=== PATIENT | female | born 1930 | race Caucasian/White ===

== ENCOUNTER 2018-12-12 10:31 | Inpatient (IN) | payer OTHER, BC ==
[2018-12-12] MEDS ORDERED: PEG 3350/NA SULF BICARB CL/KCL 4000 ML SOLN.RECON PO ONE (12:00)
[2018-12-12 12:04] LABS: BASO % 0.7 % (0-2.0); EOS % 1.2 % (0-4.5); HEMATOCRIT 33.1 % (32.4-45.2); HEMOGLOBIN 10.9 GM/dL (10.7-15.3); LYMPH % 24.2 % (8-40); MCH 28.4 pg (25.7-33.7); MCHC 32.8 g/dl (32.0-36.0); MEAN CELL VOLUME 86.5 fl (80-96); MEAN PLT VOLUME 7.7 fl (7.5-11.1); MONO % 8.9 % (3.8-10.2); PLATELET COUNT 323 K/MM3 (134-434); RBC 3.83 M/mm3 (3.60-5.2); RDW 17.3 % (11.6-15.6); WHITE BLOOD COUNT 5.6 K/mm3 (4.0-10.0)
[2018-12-12 12:16] LABS: INR 0.88 (0.83-1.09); PROTHROMBIN TIME (PATIENT) 10.4 SEC (9.7-13.0)
[2018-12-12 12:34] LABS: ALBUMIN 3.2 g/dl (3.4-5.0); ALK PHOS 49 U/L (45-117); ANION GAP 4 MMOL/L (8-16); BILIRUBIN,TOTAL 0.2 mg/dL (0.2-1); BLOOD UREA NITROGEN 32 mg/dL (7-18); CALCIUM 9.2 mg/dL (8.5-10.1); CHLORIDE 102 mmol/L (98-107); CO2 28 mmol/L (21-32); CREATININE 0.8 mg/dL (0.55-1.3); GLUCOSE,RANDOM 88 mg/dL (74-106); POTASSIUM 4.6 mmol/L (3.5-5.1); SGOT/AST 21 U/L (15-37); SGPT/ALT 24 U/L (13-61); SODIUM 135 mmol/L (136-145); TOT PROT 6.7 g/dl (6.4-8.2)
--- NOTE | 2018-12-12 13:40 | EKG ---
Test Reason : Blood Pressure : / mmHG Vent. Rate : 072 BPM Atrial Rate : 072 BPM P-R Int : 248 ms QRS Dur : 068 ms QT Int : 404 ms P-R-T Axes : 080 002 030 degrees QTc Int : 442 ms POOR DATA QUALITY, INTERPRETATION MAY BE ADVERSELY AFFECTED SINUS RHYTHM WITH 1ST DEGREE A-V BLOCK POSSIBLE LEFT ATRIAL ENLARGEMENT CANNOT RULE OUT ANTERIOR INFARCT , AGE UNDETERMINED ABNORMAL ECG WHEN COMPARED WITH ECG OF 24-JAN-2005 17:48, [place] INTERVAL HAS INCREASED Confirmed by GERMAN DOUGLAS MD ([id number]) on 12/12/2018 1:40:10 PM Referred By: Confirmed By:GERMAN DOUGLAS MD
[2018-12-12] MEDS: ONDANSETRON 4 MG/2 ML VIAL IVPUSH PRN ×2 (13:57→19:04)
[2018-12-12] MEDS ORDERED: BISACODYL 5 MG TABLET.DR (FP) PO ONE (18:00)
[2018-12-12] MEDS ORDERED: DEXTROSE 5%-0.45% SALINE 1,000 ML IV SCH (18:00)
[2018-12-12 18:23] LABS: PH,URINE 5.5 (5.0-8.0); URINE APPEARANCE CLEAR; URINE BILIRUBIN NEGATIVE (NEGATIVE); URINE COLOR YELLOW; URINE GLUCOSE (UA) NEGATIVE (NEGATIVE); URINE KETONE NEGATIVE (NEGATIVE); URINE LEUK ESTERASE NEGATIVE (NEGATIVE); URINE NITRITE NEGATIVE (NEGATIVE); URINE PROTEIN NEGATIVE (NEGATIVE); URINE UROBILINOGEN 0.2 mg/dL (0.2-1.0)
--- NOTE | 2018-12-12 18:26 | HP ---
Admitting History and Physical - Smoking History Smoking history: Never smoked - Alcohol/Substance Use Hx Alcohol Use: No Home Medications - Allergies Allergies/Adverse Reactions: Allergies Allergy/AdvReac Type Severity Reaction Status Date / Time No Known Allergies Allergy Verified 03/21/16 20:14 - Home Medications Home Medications: Ambulatory Orders Amitriptyline HCl [Elavil -] 25 mg PO DAILY 03/21/16 Amlodipine Besylate [Norvasc -] 2.5 mg PO DAILY 03/21/16 Raloxifene HCl [Evista (Nf) -] 10 mg PO DAILY 03/21/16 Methylprednisolone [Medrol Dose Gerry] 4 mg PO ASDIR 6 Days #21 tablet MDD 24mg Prednisone 10 mg PO ASDIR 12 Days #24 tablet 03/21/18 Physical Examination Vital Signs: Vital Signs Temperature 36.4 C L 12/12/18 10:31 Pulse Rate 65 12/12/18 10:31 Respiratory Rate 18 12/12/18 10:31 Blood Pressure 118/70 12/12/18 10:31 O2 Sat by Pulse Oximetry (%) Labs: CBC, BMP 12/12/18 11:55 12/12/18 11:55
--- NOTE | 2018-12-12 18:41 | HP ---
Admitting History and Physical - Primary Care Physician PCP: Jayant Tinoco - Admission Chief Complaint: Anemia, weakness, fatigue History of Present Illness: 88 year old female with H/O chronic abdominal pain and "smoldering" Myeloma/ MGUS was found to have worsening of anemia by her oncologist at [facility] [place]. Ferokinetics were inconclusive in regard to true iron deficiency, but burton- endoscopy was recommended. Saw Dr Odom who found hemetest positive brown stool. Previous attempts at outpatient preparation of colonoscopy have led to episodes of severe nausea, weakness dehydration and hyponatremia. Slow gradual outpatient prep with daily Miralax started. Admitted now for final preparation in face of ongoing weakness, nausea and electrolyte imbalance. Situation complicated as well by recent diagnosis of PMR requiring daily corticosteroid dosing and need for stress dosing prior to the scheduled endoscopies with required close electrolyte monitoring No recent gross bleeding noted. History Source: Patient, Medical Record Limitations to Obtaining History: No Limitations - Past Medical History [employer] WORKER: Yes: Other (Episode of Amaurosis Fugax 09/2015) Cardiovascular: Yes: HTN (mild controlled), Other (venous insufficiency) Gastrointestinal: Yes: Diverticulosis, Gastritis, GERD (hiatal hernia), Irritable Bowel Disease, Other (narrowed intestines h/o gastroparesis) Hepatobiliary: Yes: Other (Hepatic cysts h/o gastic polyp) Renal/: Yes: UTI (h/o) Reproductive: Yes: Postmenopausal (TAHBSO Fibroids) Heme/Onc: Yes: Anemia, Other (MGUS/Myeloma) Musculoskeletal: Yes: Osteoarthritis (DJD) Rheumatology: Yes: Other (Polymyalgia Rheumatica) Endocrine: Yes: Hypothyroidism (subclinical), Other (Recent prolonged corticosteroid usage for PMR H/O hyponatremia Osteoporosis) - Past Surgical History Past Surgical History: Yes: Appendectomy - Smoking History Smoking history: Never smoked - Alcohol/Substance Use Hx Alcohol Use: No - Social History Usual Living Arrangement: Yes: Alone ADL: Independent Home Medications - Allergies Allergies/Adverse Reactions: Allergies Allergy/AdvReac Type Severity Reaction Status Date / Time No Known Allergies Allergy Verified 03/21/16 20:14 - Home Medications Home Medications: Ambulatory Orders Amitriptyline HCl [Elavil -] 25 mg PO DAILY 03/21/16 Amlodipine Besylate [Norvasc -] 2.5 mg PO DAILY 03/21/16 Raloxifene HCl [Evista (Nf) -] 10 mg PO DAILY 03/21/16 Methylprednisolone [Medrol Dose Gerry] 4 mg PO ASDIR 6 Days #21 tablet MDD 24mg Prednisone 10 mg PO ASDIR 12 Days #24 tablet 03/21/18 Review of Systems - Review of Systems Constitutional: reports: Loss of Appetite, Weakness Eyes: reports: No Symptoms HENT: reports: No Symptoms Neck: reports: No Symptoms Cardiovascular: reports: No Symptoms Respiratory: reports: No Symptoms Gastrointestinal: reports: Abdominal Pain, Nausea Genitourinary: reports: No Symptoms Breasts: reports: No Symptoms Reported Musculoskeletal: reports: Muscle Pain (Proximal c/w PMR) Neurological: reports: No Symptoms Endocrine: reports: No Symptoms Hematology/Lymphatic: reports: No Symptoms Psychiatric: reports: No Symptoms Physical Examination Vital Signs: Vital Signs Temperature 97.5 F L 12/12/18 10:31 Pulse Rate 65 12/12/18 10:31 Respiratory Rate 18 12/12/18 10:31 Blood Pressure 118/70 12/12/18 10:31 O2 Sat by Pulse Oximetry (%) Constitutional: Yes: Well Nourished, Anxious Eyes: Yes: Conjunctiva Clear. No: Sclera Icterus HENT: Yes: Atraumatic, Normocephalic Neck: Yes: Supple. No: Lymphadenopathy, Thyromegaly Cardiovascular: Yes: Regular Rate and Rhythm Respiratory: Yes: CTA Bilaterally. No: Rhonchi, Wheezes Gastrointestinal: Yes: Normal Bowel Sounds, Soft, Distention (mild). No: Palpable Mass, Tenderness, Rebound ...Rectal Exam: Yes: Deferred Renal/: Yes: WNL Musculoskeletal: Yes: Other (degenerative joint disease) Extremities: Yes: Cool (feet dependent rubor) Edema: Yes (left ankle) Edema: LLE: 1+ Integumentary: Yes: WNL Neurological: Yes: Alert, Oriented. No: Confusion, Lethargy, Weakness Psychiatric: Yes: Alert Labs: CBC, BMP 12/12/18 11:55 12/12/18 11:55 Problem List - Problems (1) Anemia Assessment/Plan: Assess with endoscopies. Monitor clinically Code(s): D64.9 - ANEMIA, UNSPECIFIED (2) Abdominal pain Assessment/Plan: Etiology unclear. Assess with endoscopy Code(s): R10.9 - UNSPECIFIED ABDOMINAL PAIN (3) Hypertension Assessment/Plan: Well controlled Continue current Rx and close monitoring in light of fluid shifts during and after endoscopy and preparation Code(s): I10 - ESSENTIAL (PRIMARY) HYPERTENSION (4) Polymyalgia rheumatica Assessment/Plan: Monitor Resume low dose steroid dose after procedure Stress dosing given today Code(s): M35.3 - POLYMYALGIA RHEUMATICA (5) MGUS (monoclonal gammopathy of unknown significance) Assessment/Plan: Currently quiescent. "Chronic Disease" status ay be major contributor to recent drop in H/H in addition to contribution of possible steroid gastropathy Code(s): D47.2 - MONOCLONAL GAMMOPATHY (6) Subclinical hypothyroidism Assessment/Plan: Mild elevation of TSH without overt hypothyroid sign/symptoms or decline in Free T4 Code(s): E03.9 - HYPOTHYROIDISM, UNSPECIFIED (7) Gastritis and duodenitis Assessment/Plan: Possible etiology of recent heme positive stool, secondary to steroid induced mucosal damage Antacid Rx as indicated Code(s): K29.90 - GASTRODUODENITIS, UNSPECIFIED, WITHOUT BLEEDING Assessment/Plan Monitor vital signs and labs during bowel prep for tomorrow's upper and lower endoscopies. Stress steroid dosing ordered. Ongoing antacid therapy to be determined based on findings. Symptomatic Rx with ondansetron for nausea
--- NOTE | 2018-12-12 20:25 | CON.GI ---
Consult Consult Specialty:: Gastroenterology Referred by:: Dr Tinoco Reason for Consultation:: Anemia and abdominal pain - History of Present Illness Chief Complaint: Worsening anemia. Chronic pain and erratic bowel habits History of Present Illness: 88F was found to have worsening anemia in the setting of multiple myeloma/MGUS by her oncologist at [facility] [place] who advised her to have panendoscopy. Tammie last had a colonoscopy in 2003 when diverticulosis was noted. She suffered vomiting and a near syncopal spell during her previous bowel prep related to the fluid and electrolyte losses commonly associated with the prep and to which she is particularly vulnerable to. When examined on December 03 in my office she was found to be fecally impacted and had occult blood in her stool. This required that she undergo a gradual Miralax lavage prior to attempting today's rigorous prep. IV hydration was initiated earlier as Tammie was found to have prerenal azotemia. She has recently been on Prednisone for PMR and will need a dose of stress steroids early tomorrow morning prior to her procedures. She last had an EGD in 2006 when a false gastric polyp was removed but which also revealed a hiatal hernia and a Audrey Josue tear. Given her propensity to vomit with the prep and her previous Audrey Ashkan tear, IV Zofran has also been instituted to prevent a recurrence and hemorrhage. Tammie has chronically erratic bowel habits fluctuating between constipation and paroxysal diarrhea associated with abdominal pain.She denies any overt GI bleeding. 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 managed conservatively, h/o gastroparesis with bezoar) Hepatobiliary: Yes: Other (Hepatic cysts ) Renal/: Yes: UTI (h/o) Heme/Onc: Yes: Anemia, Other (MGUS vs low grade multiple myeloma) Musculoskeletal: Yes: Osteoarthritis (DJD) Rheumatology: Yes: Other (Polymyalgia Rheumatica) Endocrine: Yes: Hypothyroidism (subclinical), Other (Recent prolonged corticosteroid usage for PMR H/O hyponatremia Osteoporosis) - Past Surgical History Past Surgical History: Yes: Appendectomy, Cataract Removal (bilateral), Colonoscopy, Hysterectomy (TAHBSO for fibroid), Upper Endoscopy - Alcohol/Substance Use Hx Alcohol Use: Yes (occasional wine ) History of Substance Use: reports: None - Smoking History Smoking history: Never smoked - Social History Usual Living Arrangement: Alone ADL: Independent 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 [employer] [facility] [employer] Home Medications - Allergies Allergies/Adverse Reactions: Allergies Allergy/AdvReac Type Severity Reaction Status Date / Time No Known Allergies Allergy Verified 03/21/16 20:14 - Home Medications Home Medications: Ambulatory Orders Amitriptyline HCl [Elavil -] 25 mg PO DAILY 03/21/16 Amlodipine Besylate [Norvasc -] 2.5 mg PO DAILY 03/21/16 Raloxifene HCl [Evista (Nf) -] 10 mg PO DAILY 03/21/16 Methylprednisolone [Medrol Dose Gerry] 4 mg PO ASDIR 6 Days #21 tablet MDD 24mg Prednisone 10 mg PO ASDIR 12 Days #24 tablet 03/21/18 Family Disease History - Family Disease History Family Disease History: CA: Mother (ovarian cancer), Daughter (thyroid cancer) Review of Systems - Review of Systems Constitutional: reports: No Symptoms Eyes: reports: No Symptoms HENT: reports: No Symptoms Neck: reports: No Symptoms Cardiovascular: reports: No Symptoms Respiratory: reports: No Symptoms Gastrointestinal: reports: Abdominal Pain, Constipation Neurological: reports: No Symptoms Physical Exam-GI Vital Signs: Vital Signs Temperature 97.5 F L 12/12/18 10:31 Pulse Rate 65 12/12/18 10:31 Respiratory Rate 18 12/12/18 10:31 Blood Pressure 118/70 12/12/18 10:31 O2 Sat by Pulse Oximetry (%) CBC,CMP WBC 5.6 K/mm3 (4.0-10.0) 12/12/18 11:55 RBC 3.83 M/mm3 (3.60-5.2) 12/12/18 11:55 Hgb 10.9 GM/dL (10.7-15.3) 12/12/18 11:55 Hct 33.1 % (32.4-45.2) 12/12/18 11:55 MCV 86.5 fl (80-96) 12/12/18 11:55 MCH 28.4 pg (25.7-33.7) 12/12/18 11:55 MCHC 32.8 g/dl (32.0-36.0) 12/12/18 11:55 RDW 17.3 % (11.6-15.6) H 12/12/18 11:55 Plt Count 323 K/MM3 (134-434) 12/12/18 11:55 MPV 7.7 fl (7.5-11.1) 12/12/18 11:55 Absolute Neuts (auto) 3.6 K/mm3 (1.5-8.0) 12/12/18 11:55 Neutrophils % 65.0 % (42.8-82.8) 12/12/18 11:55 Lymphocytes % 24.2 % (8-40) 12/12/18 11:55 Monocytes % 8.9 % (3.8-10.2) 12/12/18 11:55 Eosinophils % 1.2 % (0-4.5) 12/12/18 11:55 Basophils % 0.7 % (0-2.0) 12/12/18 11:55 Nucleated RBC % 0 % (0-0) 12/12/18 11:55 Retic Count 1.26 % (0.5-1.5) 12/12/18 11:55 Sodium 135 mmol/L (136-145) L 12/12/18 11:55 Potassium 4.6 mmol/L (3.5-5.1) 12/12/18 11:55 Chloride 102 mmol/L (98-107) 12/12/18 11:55 Carbon Dioxide 28 mmol/L (21-32) 12/12/18 11:55 Anion Gap 4 MMOL/L (8-16) L 12/12/18 11:55 BUN 32 mg/dL (7-18) H 12/12/18 11:55 Creatinine 0.8 mg/dL (0.55-1.3) 12/12/18 11:55 Creat Clearance w eGFR 67.54 (>60) 12/12/18 11:55 Random Glucose 88 mg/dL (74-106) 12/12/18 11:55 Calcium 9.2 mg/dL (8.5-10.1) 12/12/18 11:55 Total Bilirubin 0.2 mg/dL (0.2-1) 12/12/18 11:55 AST 21 U/L (15-37) 12/12/18 11:55 ALT 24 U/L (13-61) 12/12/18 11:55 Alkaline Phosphatase 49 U/L (45-117) 12/12/18 11:55 Total Protein 6.7 g/dl (6.4-8.2) 12/12/18 11:55 Albumin 3.2 g/dl (3.4-5.0) L 12/12/18 11:55 Current Medications Generic Name Dose Route Start Last Admin Trade Name Freq PRN Reason Stop Dose Admin Amitriptyline HCl 10 mg 12/12/18 22:00 Elavil - PO HS JESSICA Amlodipine Besylate 2.5 mg 12/13/18 10:00 Norvasc - PO DAILY JESSICA Hydrocortisone Sodium Succinate 100 mg 12/13/18 06:00 Solu-Cortef - IVPUSH 12/13/18 06:01 ONCE ONE Dextrose/Sodium Chloride 1,000 mls @ 83 mls/hr 12/12/18 18:00 12/12/18 18:54 D5-1/2ns - IV 83 mls/hr ASDIR JESSICA Administration Ondansetron HCl 4 mg 12/12/18 13:28 12/12/18 19:04 Zofran Injection IVPUSH 4 mg Q6H PRN Administration NAUSEA Ranitidine HCl 150 mg 12/12/18 22:00 Zantac - PO BID JESSICA Constitutional: Yes: Calm Eyes: Yes: Conjunctiva Clear HENT: Yes: Atraumatic Neck: Yes: Trachea Midline Cardiovascular: Yes: Regular Rate and Rhythm Respiratory: Yes: CTA Bilaterally Gastrointestinal Inspection: Yes: Scars (overlapping vertical suprapubic incisions) ...Auscultate: Yes: Hyperactive Bowel Sounds ...Palpate: Yes: Soft, Other (nontender) ...Rectal Exam: Yes: Deferred (done on office 12/03/18 when was guaiac positive) , Guaiac Positive (on 12/03/18) Labs: CBC, BMP 12/12/18 11:55 12/12/18 11:55 INR, PTT INR 0.88 (0.83-1.09) 12/12/18 11:55 Problem List - Problems (1) Anemia Assessment/Plan: Given her worsening anemia that is apparently not attributable to her myeloma/ MGUS and her occult bleeding I agree with her oncologist that panendoscopy is indicated. I have again discussed EGD and colonoscopy in detail with Tammie and now with her daughter. I have informed them of the potential for such complications as perforation and hemorrhage. Tammie has signed an informed consent. I am infusing Zofran to prevent vomiting and a Audrey Ashkan tear and bleed. I have also ordered stress dose steroids for the AM Code(s): D64.9 - ANEMIA, UNSPECIFIED Qualifiers: Anemia type: unspecified type Qualified Code(s): D64.9 - Anemia, unspecified (2) Occult blood positive stool Code(s): R19.5 - OTHER FECAL ABNORMALITIES (3) Hiatal hernia with GERD Code(s): K21.9 - GASTRO-ESOPHAGEAL REFLUX DISEASE WITHOUT ESOPHAGITIS; K44.9 - DIAPHRAGMATIC HERNIA WITHOUT OBSTRUCTION OR GANGRENE (4) Diverticulosis Code(s): K57.90 - DVRTCLOS OF INTEST, PART UNSP, W/O PERF OR ABSCESS W/O BLEED (5) Constipation Code(s): K59.00 - CONSTIPATION, UNSPECIFIED (6) Prerenal azotemia Assessment/Plan: IV hydration is being gven Code(s): R79.89 - OTHER SPECIFIED ABNORMAL FINDINGS OF BLOOD CHEMISTRY (7) Myeloma Code(s): C90.00 - MULTIPLE MYELOMA NOT HAVING ACHIEVED REMISSION (8) Abdominal pain Code(s): R10.9 - UNSPECIFIED ABDOMINAL PAIN (9) MGUS (monoclonal gammopathy of unknown significance) Code(s): D47.2 - MONOCLONAL GAMMOPATHY (10) Polymyalgia rheumatica Code(s): M35.3 - POLYMYALGIA RHEUMATICA Assessment/Plan Impression: Progressive anemia and occult bleed raise the possibility of bleeding from vascular formations, silent ulcers or erosive gastritis, GERD and neoplasms among other etiologies Constipation predominant IBS Diverticulosis Hiatal hernia with GERD and h/o Audrey Ashkan tear H/O Gastroparesis Plan: Complete Golytely prep IV rehydration Zofran IVPB SoluCortef in the early AM prior to the procedure EGD and colonoscopy in AM
[2018-12-12] MEDS: RANITIDINE HCL 150 MG TABLET (FP) PO SCH (21:59)
[2018-12-12] MEDS ORDERED: AMITRIPTYLINE HCL 10 MG TABLET (FP) PO SCH (22:00)
[2018-12-13] MEDS: ONDANSETRON 4 MG/2 ML VIAL IVPUSH PRN ×2 (01:08→05:41)
[2018-12-13] MEDS ORDERED: HYDROCORTISONE SOD SUCCINATE 100 MG/2 ML VIAL IVPUSH ONE (06:00)
[2018-12-13 06:37] LABS: ANION GAP 6 MMOL/L (8-16); BLOOD UREA NITROGEN 16 mg/dL (7-18); CALCIUM 7.9 mg/dL (8.5-10.1); CHLORIDE 102 mmol/L (98-107); CO2 31 mmol/L (21-32); CREATININE 0.9 mg/dL (0.55-1.3); GLUCOSE,RANDOM 101 mg/dL (74-106); MAGNESIUM 1.7 mg/dL (1.8-2.4); PHOSPHOROUS 3.2 mg/dL (2.5-4.9); POTASSIUM 3.7 mmol/L (3.5-5.1); SODIUM 140 mmol/L (136-145)
[2018-12-13 06:54] LABS: BASO % 0.7 % (0-2.0); EOS % 1.3 % (0-4.5); HEMATOCRIT 33.2 % (32.4-45.2); HEMOGLOBIN 11.1 GM/dL (10.7-15.3); LYMPH % 25.4 % (8-40); MCH 28.7 pg (25.7-33.7); MCHC 33.3 g/dl (32.0-36.0); MEAN CELL VOLUME 86.3 fl (80-96); MEAN PLT VOLUME 8.6 fl (7.5-11.1); MONO % 8.2 % (3.8-10.2); NEUT % 64.4 % (42.8-82.8); PLATELET COUNT 313 K/MM3 (134-434); RBC 3.85 M/mm3 (3.60-5.2); RDW 17.4 % (11.6-15.6); WHITE BLOOD COUNT 6.7 K/mm3 (4.0-10.0)
[2018-12-13] MEDS ORDERED: ETOMIDATE 20 MG/10 ML AMPUL IVPUSH ONE (08:49)
[2018-12-13] MEDS ORDERED: amLODIPine BESYLATE 2.5 MG TABLET (FP) PO SCH (10:00)
[2018-12-13] MEDS: RANITIDINE HCL 150 MG TABLET (FP) PO SCH (11:29)
--- NOTE | 2018-12-13 12:09 | PN ---
Progress Note (short form) - Note Progress Note: GI Procedure NOte: Please see scanned EGD and colonoscopy reports. Erosive GERD is the caue of occult bleeding. A cecal polyp was removed and colon diverticulosis was noted. Findings were discussed with Tammie, her daughters and Dr Tinoco. NO GI objections to discharge. Will eprescibe Pantoprazole. Problem List - Problems (1) Anemia Code(s): D64.9 - ANEMIA, UNSPECIFIED Qualifiers: Anemia type: unspecified type Qualified Code(s): D64.9 - Anemia, unspecified (2) Occult blood positive stool Code(s): R19.5 - OTHER FECAL ABNORMALITIES (3) Hiatal hernia with GERD Code(s): K21.9 - GASTRO-ESOPHAGEAL REFLUX DISEASE WITHOUT ESOPHAGITIS; K44.9 - DIAPHRAGMATIC HERNIA WITHOUT OBSTRUCTION OR GANGRENE (4) Diverticulosis Code(s): K57.90 - DVRTCLOS OF INTEST, PART UNSP, W/O PERF OR ABSCESS W/O BLEED (5) Constipation Code(s): K59.00 - CONSTIPATION, UNSPECIFIED (6) Prerenal azotemia Code(s): R79.89 - OTHER SPECIFIED ABNORMAL FINDINGS OF BLOOD CHEMISTRY (7) Myeloma Code(s): C90.00 - MULTIPLE MYELOMA NOT HAVING ACHIEVED REMISSION (8) Abdominal pain Code(s): R10.9 - UNSPECIFIED ABDOMINAL PAIN (9) MGUS (monoclonal gammopathy of unknown significance) Code(s): D47.2 - MONOCLONAL GAMMOPATHY (10) Polymyalgia rheumatica Code(s): M35.3 - POLYMYALGIA RHEUMATICA
[2018-12-13 12:10] VITALS: BP 140/78; PULSE 78; TEMP 98.2
--- NOTE | 2018-12-13 12:38 | DS ---
Physical Examination Vital Signs: Vital Signs Temperature 36.8 C 12/13/18 11:14 Pulse Rate 78 12/13/18 11:14 Respiratory Rate 17 12/13/18 11:14 Blood Pressure 140/78 12/13/18 11:14 O2 Sat by Pulse Oximetry (%) 98 12/13/18 10:40 Constitutional: Yes: Well Nourished, No Distress, Calm Cardiovascular: Yes: Regular Rate and Rhythm. No: Gallop, Murmur, Rub Respiratory: Yes: Regular, CTA Bilaterally. No: Rales, Rhonchi, Wheezes Gastrointestinal: Yes: Normal Bowel Sounds, Soft. No: Distention, Tenderness Extremities: Yes: WNL Edema: No Labs: CBC, BMP 12/13/18 05:55 12/13/18 05:55 Discharge Summary Reason For Visit: CONSTIPATION Current Active Problems Abdominal pain (Acute) Anemia (Acute) Constipation (Acute) Diverticulosis (Acute) Gastritis and duodenitis (Acute) Hiatal hernia with GERD (Acute) Hypertension (Acute) MGUS (monoclonal gammopathy of unknown significance) (Acute) Myeloma (Acute) Occult blood positive stool (Acute) Polymyalgia rheumatica (Acute) Prerenal azotemia (Acute) Subclinical hypothyroidism (Acute) Hospital Course: Ms Em is a very pleasant 88 year old female who was admitted to the hospital for endoscopy and colonoscopy. It was unsafe for her to undergo preparation at home so she was admitted for close monitoring. She tolerated the prep well and underwent EGD and colonoscopy. She was found to have erosive GERD and also had a polyp resected. She was cleared by Dr Odom and safe for discharge home. Condition: Good - Instructions Diet, Activity, Other Instructions: resume previous diet and activity Referrals: Kamilla Odom MD [Staff Physician] - Jayant Tinoco MD [Staff Physician] - Disposition: HOME - Home Medications Comprehensive Discharge Medication List: Ambulatory Orders Amitriptyline HCl [Elavil -] 25 mg PO DAILY 03/21/16 Amlodipine Besylate [Norvasc -] 2.5 mg PO DAILY 03/21/16 Raloxifene HCl [Evista (Nf) -] 10 mg PO DAILY 03/21/16 Methylprednisolone [Medrol Dose Gerry] 4 mg PO ASDIR 6 Days #21 tablet MDD 24mg Prednisone 10 mg PO ASDIR 12 Days #24 tablet 03/21/18 Ondansetron HCl [Zofran] 4 mg PO BID PRN 30 Days #60 tablet 12/13/18 Pantoprazole Sodium 40 mg PO HS #90 tablet. 12/13/18
--- NOTE | 2018-12-17 15:58 | PATH ---
Surgical Pathology Report Patient Name: JAYNA GARCÍA [facility]. Rec. #: [id number] /Age/Gender: 1930 (Age: 88) / F Account: [id number] Location: [address] [place] [address] Taken: 12/13/2018 Received: 12/13/2018 Reported: 12/17/2018 Physicians: Kamilla Odom M.D. Specimen(s) Received A: 2ND PORTION DUODENUM AND BULB B: ANTRUM C: GE JUNCTION D: CECUM Clinical History Guaiac positive Postop diagnosis: Reflux ulcerations, hiatal hernia, GERD, diverticulosis, cecal colon polyp Final Diagnosis A. DUODENUM, SECOND PORTION AND BULB, BIOPSY: DUODENAL MUCOSA WITHOUT SIGNIFICANT PATHOLOGIC FINDINGS. B. STOMACH, ANTRUM, BIOPSY: GASTRIC ANTRAL MUCOSA WITH MILD CHRONIC GASTRITIS. IMMUNOHISTOCHEMICAL STAIN FOR H. PYLORI IS NEGATIVE. C. GE JUNCTION, BIOPSY: SQUAMOUS MUCOSA WITH MARKED ACUTE ESOPHAGITIS AND ASSOCIATED ULCERATION. MARKED ACUTE PURULENT EXUDATE CONSISTENT WITH ULCER BASE. PAS FUNGAL STAIN IS NEGATIVE. NO COLUMNAR MUCOSA, INTESTINAL METAPLASIA, OR DYSPLASIA IDENTIFIED. D. CECAL POLYP, BIOPSY: TUBULAR ADENOMA. Electronically Signed Tika Reeves M.D. Gross Description A. Received in formalin, labeled "second portion and bulb biopsy of duodenum" are 2 tate, irregular portions of soft tissue averaging 0.4 cm. in greatest dimension. The specimens are submitted in toto in one cassette. B. Received in formalin, labeled "antrum biopsy" are 5 tate, irregular portions of soft tissue ranging from 0.2-0.5 cm. in greatest dimension. The specimens are submitted in toto in one cassette. C. Received in formalin, labeled "GE junction biopsy" are 3 tate, irregular portions of soft tissue ranging from 0.2-0.4 cm. in greatest dimension. The specimens are submitted in toto in one cassette. D. Received in formalin, labeled "cecal polyp biopsy" are 2 tate, irregular portions of soft tissue measuring 0.2 and 0.3 cm. in greatest dimension. The specimens are submitted in toto in one cassette. /12/13/2018 saudi/12/13/2018
== END 2018-12-13 14:48 | disposition home or self-care (01) | DRG 381 ==
LOC: J6S 10:31 → EDSTATUS 11:15
PROVIDERS: ADMIT Specialist; ATTEND Internal Medicine
PROC: 0DB58ZX Excision of Esophagus, Via Natural or Artificial Opening Endoscopic, Diagnostic (ICD-10-PCS; 2018-12-13)
PROC: 0DBH8ZX Excision of Cecum, Via Natural or Artificial Opening Endoscopic, Diagnostic (ICD-10-PCS; principal; 2018-12-13 09:00)
DX: K22.10 Ulcer of esophagus without bleeding (principal); C90.00 Multiple myeloma not having achieved remission; K21.0 Gastro-esophageal reflux disease with esophagitis; D64.9 Anemia, unspecified; M35.3 Polymyalgia rheumatica; I10 Essential (primary) hypertension; D47.2 Monoclonal gammopathy; E03.9 Hypothyroidism, unspecified; K57.90 Diverticulosis of intestine, part unspecified, without perforation or abscess without bleeding; K44.9 Diaphragmatic hernia without obstruction or gangrene; D12.0 Benign neoplasm of cecum
CPT/HCPCS: 36415; 80048; 80053; 81003; 83735; 84100; 85025; 85044; 85610; 88305-TC; 93005; 93010